=== PATIENT | male | born 1965 | race Two or more races ===

== ENCOUNTER 2020-10-28 17:00 | Inpatient (IN) | payer MEDICAID ==
[~2020-10-28] VITALS: Ht 193 cm; Wt 113.4 kg
[2020-10-28 18:54] VITALS: BP 149/92
[2020-10-28 20:00] VITALS: BP 132/69
[2020-10-28 20:39] VITALS: BP 149/91
[2020-10-28] MEDS ORDERED: HYDROCODONE/ACETAMINOPHEN 5/325MG TABLET PO PRN (21:00)
[2020-10-28] MEDS ORDERED: DEXTROSE 50% WATER 50ML SYRINGE IV PRN (21:00)
[2020-10-28] MEDS ORDERED: GLUCAGON,HUMAN RECOMBINANT 1MG/VIAL SUBCUT PRN (21:00)
[2020-10-28] MEDS ORDERED: NALOXONE HCL 0.4MG/ML VIAL IV PRN (21:30)
[2020-10-28] MEDS: BLOOD SUGAR DIAGNOSTIC STRIP TEST SCH (21:50)
[2020-10-28] MEDS: ATORVASTATIN CALCIUM 40MG TABLET PO SCH (22:07)
[2020-10-28] MEDS: INSULIN LISPRO 100 UNITS/ML SUBCUT SCH (22:11)
[2020-10-29] MEDS: BLOOD SUGAR DIAGNOSTIC STRIP TEST SCH ×4 (06:18→21:37)
[2020-10-29] MEDS: INSULIN LISPRO 100 UNITS/ML SUBCUT SCH ×4 (06:27→21:44)
[2020-10-29 06:31] LABS: BASOPHILS % 0.6 % (0.0-2.0); HEMOGLOBIN. 16.9 g/dL (14.0-18.0); LYMPHOCYTES % 17.4 % (20.0-50.0); MEAN CORPUSCULAR HEMOGLOBIN 29.1 pg (28.0-32.0); MEAN CORPUSCULAR VOLUME 86.2 fL (80.0-94.0); MEAN PLATELET VOLUME 8.5 fl (7.4-10.4); PLATELET 233 x1000/uL (130-400); RED CELL DISTRIBUTION WIDTH 13.9 % (11.6-14.6)
[2020-10-29 07:16] LABS: CHLORIDE 105 mEq/L (98-107)
[2020-10-29 08:00] VITALS: BP 124/75
[2020-10-29] MEDS: ASPIRIN 325MG EC TABLET PO SCH (09:40)
[2020-10-29] MEDS: LINAGLIPTIN 5MG TABLET PO SCH (09:40)
[2020-10-29] MEDS: CLOPIDOGREL 75MG TABLET PO SCH (09:40)
[2020-10-29] MEDS: AMLODIPINE 10MG TABLET PO SCH (09:41)
[2020-10-29] MEDS ORDERED: POLYETHYLENE GLYCOL 3350 (17GM) 1 DOSE PACK PO NR (11:15)
[2020-10-29 20:00] VITALS: BP 145/73
[2020-10-29] MEDS: ATORVASTATIN CALCIUM 40MG TABLET PO SCH (21:38)
[2020-10-30] MEDS: BLOOD SUGAR DIAGNOSTIC STRIP TEST SCH ×4 (06:08→21:44)
[2020-10-30] MEDS: INSULIN LISPRO 100 UNITS/ML SUBCUT SCH ×4 (06:15→21:50)
[2020-10-30] MEDS ORDERED: NA PHOS,M-B/NA PHOS,DI-BA ENEMA 118ML PR PRN (07:45)
[2020-10-30] MEDS ORDERED: BISACODYL 10MG SUPP PR PRN (07:45)
[2020-10-30 07:50] LABS: BASOPHILS % 0.6 % (0.0-2.0); EOSINOPHILS % 0.6 % (0.0-5.0); HEMATOCRIT. 48.7 % (42.0-52.0); HEMOGLOBIN. 16.3 g/dL (14.0-18.0); LYMPHOCYTES % 17.4 % (20.0-50.0); MEAN CORPUSCULAR HEMOGLOBIN 29.1 pg (28.0-32.0); MEAN CORPUSCULAR VOLUME 86.9 fL (80.0-94.0); MEAN PLATELET VOLUME 8.3 fl (7.4-10.4); MONOCYTES % 14.6 % (2.0-8.0); NEUTROPHILS % 66.8 % (40.0-76.0); PLATELET 273 x1000/uL (130-400); RED CELL DISTRIBUTION WIDTH 14.1 % (11.6-14.6)
[2020-10-30 07:51] LABS: CHLORIDE 105 mEq/L (98-107)
[2020-10-30 08:03] LABS: PROSTRATE SPECIFIC AG TOTAL 0.74 ng/mL (0.0-4.0)
[2020-10-30 08:07] LABS: FOLIC ACID (FOLATE) SERUM 16.4 ng/mL (>5.38)
[2020-10-30 08:08] LABS: LDL CHOLESTEROL 91 mg/dL (5-100)
[2020-10-30 08:09] LABS: HDL CHOLESTEROL 21 mg/dL (40-59)
[2020-10-30 08:10] LABS: TOTAL IRON BINDING CAPACITY 308 ug/dL (250-450)
[2020-10-30 08:16] VITALS: BP 143/69
[2020-10-30] MEDS: ARIPIPRAZOLE 5MG TABLET PO SCH (09:55)
[2020-10-30] MEDS: ASPIRIN 325MG EC TABLET PO SCH (09:55)
[2020-10-30] MEDS: LINAGLIPTIN 5MG TABLET PO SCH (09:56)
[2020-10-30] MEDS: CITALOPRAM HYDROBROMIDE 10MG TABLET PO SCH (09:56)
[2020-10-30] MEDS: AMLODIPINE 10MG TABLET PO SCH (09:56)
[2020-10-30] MEDS: CLOPIDOGREL 75MG TABLET PO SCH (09:56)
[2020-10-30] MEDS: BISACODYL 5MG TABLET PO PRN (11:11)
[2020-10-30] MEDS: LACTULOSE 20G/30ML UDC PO PRN ×2 (12:47→21:45)
[2020-10-30] MEDS: POLYETHYLENE GLYCOL 3350 (17GM) 1 DOSE PACK PO SCH (14:15)
[2020-10-30] MEDS: ASCORBIC ACID 500 MG TABLET PO SCH (18:13)
[2020-10-30] MEDS: METFORMIN HCL 500MG TABLET PO SCH (18:13)
[2020-10-30] MEDS: DOCUSATE SODIUM 100MG CAPSULE PO SCH (18:13)
[2020-10-30] MEDS: FERROUS SULFATE 325MG TABLET PO SCH (18:13)
[2020-10-30 20:00] VITALS: BP 143/65
[2020-10-30] MEDS: ATORVASTATIN CALCIUM 40MG TABLET PO SCH (21:45)
[2020-10-30] MEDS: TRAZODONE HCL 50MG TABLET PO SCH (21:45)
[2020-10-30] MEDS ORDERED: INSULIN GLARGINE UD 100 UNITS/ML SYR SUBCUT SCH (22:00)
[2020-10-31] MEDS: BLOOD SUGAR DIAGNOSTIC STRIP TEST SCH ×4 (06:22→20:36)
[2020-10-31] MEDS: BISACODYL 5MG TABLET PO PRN (06:23)
[2020-10-31] MEDS: INSULIN LISPRO 100 UNITS/ML SUBCUT SCH ×4 (06:27→21:16)
[2020-10-31] MEDS: MICONAZOLE NITRATE TOP SCH ×3 (06:42→21:11)
[2020-10-31 08:00] VITALS: BP 148/74
[2020-10-31] MEDS: FERROUS SULFATE 325MG TABLET PO SCH ×2 (08:29→12:28)
[2020-10-31] MEDS: METFORMIN HCL 500MG TABLET PO SCH ×2 (08:29→17:00)
[2020-10-31] MEDS: DOCUSATE SODIUM 100MG CAPSULE PO SCH ×2 (08:29→17:55)
[2020-10-31] MEDS: AMLODIPINE 10MG TABLET PO SCH (08:29)
[2020-10-31] MEDS: ASPIRIN 325MG EC TABLET PO SCH (08:29)
[2020-10-31] MEDS: ASCORBIC ACID 500 MG TABLET PO SCH (08:29)
[2020-10-31] MEDS: CITALOPRAM HYDROBROMIDE 10MG TABLET PO SCH (08:29)
[2020-10-31] MEDS: POLYETHYLENE GLYCOL 3350 (17GM) 1 DOSE PACK PO SCH (08:30)
[2020-10-31] MEDS: LINAGLIPTIN 5MG TABLET PO SCH (08:30)
[2020-10-31] MEDS: CLOPIDOGREL 75MG TABLET PO SCH (08:30)
[2020-10-31] MEDS: ARIPIPRAZOLE 5MG TABLET PO SCH (08:30)
[2020-10-31] MEDS ORDERED: LISINOPRIL 2.5MG TABLET PO SCH (09:00)
[2020-10-31] MEDS ORDERED: MICONAZOLE NITRATE 2% OINT 71GM TOP SCH (09:00)
[2020-10-31] MEDS: REPAGLINIDE 1MG TABLET PO SCH ×3 (12:29→17:55)
[2020-10-31] MEDS: ATORVASTATIN CALCIUM 40MG TABLET PO SCH (21:10)
[2020-10-31] MEDS: TRAZODONE HCL 50MG TABLET PO SCH (21:10)
[2020-10-31] MEDS: INSULIN GLARGINE UD 100 UNITS/ML SYR SUBCUT SCH (21:10)
[2020-10-31] MEDS: ACETAMINOPHEN 325MG TABLET PO PRN (21:11)
[2020-10-31 22:29] VITALS: BP 161/72
[2020-11-01] MEDS: BLOOD SUGAR DIAGNOSTIC STRIP TEST SCH ×4 (05:37→21:11)
[2020-11-01] MEDS: ACETAMINOPHEN 325MG TABLET PO PRN (06:03)
[2020-11-01] MEDS: MICONAZOLE NITRATE TOP SCH ×3 (06:03→21:11)
[2020-11-01 07:56] VITALS: BP 116/64
[2020-11-01] MEDS: INSULIN LISPRO 100 UNITS/ML SUBCUT SCH ×4 (09:00→21:13)
[2020-11-01] MEDS: POLYETHYLENE GLYCOL 3350 (17GM) 1 DOSE PACK PO SCH (09:57)
[2020-11-01] MEDS: LACTULOSE 20G/30ML UDC PO PRN (09:57)
[2020-11-01] MEDS: ARIPIPRAZOLE 5MG TABLET PO SCH (10:02)
[2020-11-01] MEDS: DOCUSATE SODIUM 100MG CAPSULE PO SCH ×2 (10:03→17:46)
[2020-11-01] MEDS: CITALOPRAM HYDROBROMIDE 10MG TABLET PO SCH (10:03)
[2020-11-01] MEDS: ASPIRIN 325MG EC TABLET PO SCH (10:03)
[2020-11-01] MEDS: METFORMIN HCL 500MG TABLET PO SCH (10:04)
[2020-11-01] MEDS: AMLODIPINE 10MG TABLET PO SCH (10:05)
[2020-11-01] MEDS: FERROUS SULFATE 325MG TABLET PO SCH (10:05)
[2020-11-01] MEDS: CLOPIDOGREL 75MG TABLET PO SCH (10:06)
[2020-11-01] MEDS: LINAGLIPTIN 5MG TABLET PO SCH (10:06)
[2020-11-01] MEDS: ASCORBIC ACID 500 MG TABLET PO SCH (10:06)
[2020-11-01] MEDS: REPAGLINIDE 1MG TABLET PO SCH ×3 (10:06→17:46)
[2020-11-01 10:32] LABS: HEMATOCRIT 49.1 % (42.0-52.0); HEMOGLOBIN 16.7 g/dL (14.0-18.0); MEAN CORPUSCULAR HEMOGLOBIN 29.5 pg (28.0-32.0); MEAN CORPUSCULAR VOLUME 86.7 fL (80.0-94.0); PLATELET 303 x1000/uL (130-400); RED BLOOD CELL COUNT 5.66 mill/uL (4.7-6.1)
[2020-11-01] MEDS ORDERED: SODIUM POLYSTYRENE SULFONATE 15 G/60 ML BOT PO NR (16:00)
[2020-11-01 20:00] VITALS: BP 112/59
[2020-11-01] MEDS: ATORVASTATIN CALCIUM 40MG TABLET PO SCH (21:11)
[2020-11-01] MEDS: TRAZODONE HCL 50MG TABLET PO SCH (21:11)
[2020-11-01] MEDS: INSULIN GLARGINE UD 100 UNITS/ML SYR SUBCUT SCH (21:15)
[2020-11-02] MEDS: MICONAZOLE NITRATE TOP SCH ×3 (06:04→21:34)
[2020-11-02] MEDS: BLOOD SUGAR DIAGNOSTIC STRIP TEST SCH ×4 (06:08→20:44)
[2020-11-02 06:29] LABS: CLARITY URINE CLEAR (CLEAR); COLOR URINE YELLOW (YELLOW); KETONES URINE TRACE (NEGATIVE); LEUKOCYTE ESTERASE URINE 2+ (NEGATIVE); NITRITE URINE NEGATIVE (NEGATIVE); OCCULT BLOOD URINE NEGATIVE (NEGATIVE); PROTEIN URINE NEGATIVE (NEGATIVE); SPECIFIC GRAVITY URINE 1.019 (1.005-1.030); UROBILINOGEN URINE 0.2 E.U./dL (0.2-1.0)
[2020-11-02 07:07] LABS: CHLORIDE 102 mEq/L (98-107)
[2020-11-02 07:16] LABS: PHOSPHORUS 2.9 mg/dL (2.5-4.9)
[2020-11-02 07:19] LABS: CREATINE KINASE 195 IU/L (39-308)
[2020-11-02 07:20] LABS: BASOPHILS % 0.6 % (0.0-2.0); EOSINOPHILS % 0.6 % (0.0-5.0); HEMATOCRIT. 47.6 % (42.0-52.0); LYMPHOCYTES % 12.6 % (20.0-50.0); MEAN CORPUSCULAR VOLUME 86.2 fL (80.0-94.0); MEAN PLATELET VOLUME 8.2 fl (7.4-10.4); NEUTROPHILS % 72.2 % (40.0-76.0); PLATELET 288 x1000/uL (130-400); RED BLOOD CELL COUNT 5.52 mill/uL (4.7-6.1); RED CELL DISTRIBUTION WIDTH 13.6 % (11.6-14.6)
[2020-11-02 08:00] VITALS: BP 136/70
[2020-11-02] MEDS: ASPIRIN 325MG EC TABLET PO SCH (08:31)
[2020-11-02] MEDS: FERROUS SULFATE 325MG TABLET PO SCH (08:32)
[2020-11-02] MEDS: ASCORBIC ACID 500 MG TABLET PO SCH (08:32)
[2020-11-02] MEDS: CLOPIDOGREL 75MG TABLET PO SCH (08:32)
[2020-11-02] MEDS: ARIPIPRAZOLE 5MG TABLET PO SCH (08:32)
[2020-11-02] MEDS: LINAGLIPTIN 5MG TABLET PO SCH (08:33)
[2020-11-02] MEDS: AMLODIPINE 10MG TABLET PO SCH (08:33)
[2020-11-02] MEDS: CITALOPRAM HYDROBROMIDE 10MG TABLET PO SCH (08:33)
[2020-11-02] MEDS: REPAGLINIDE 1MG TABLET PO SCH ×3 (08:34→17:29)
[2020-11-02] MEDS: POLYETHYLENE GLYCOL 3350 (17GM) 1 DOSE PACK PO SCH (08:38)
[2020-11-02] MEDS: DOCUSATE SODIUM 100MG CAPSULE PO SCH ×2 (08:38→17:29)
[2020-11-02] MEDS: INSULIN LISPRO 100 UNITS/ML SUBCUT SCH ×4 (08:41→21:54)
[2020-11-02] MEDS ORDERED: POTASSIUM CHLORIDE 20MEQ TABLET SR PO NR (08:45)
[2020-11-02] MEDS: PREDNISOLONE ACETATE 1% OPHTH DROPS 5ML BOTHEYE SCH (17:29)
[2020-11-02 20:00] VITALS: BP 134/75
[2020-11-02] MEDS: TRAZODONE HCL 50MG TABLET PO SCH (21:31)
[2020-11-02] MEDS: ATORVASTATIN CALCIUM 40MG TABLET PO SCH (21:31)
[2020-11-02] MEDS: INSULIN GLARGINE UD 100 UNITS/ML SYR SUBCUT SCH (21:53)
[2020-11-03] MEDS: PREDNISOLONE ACETATE 1% OPHTH DROPS 5ML BOTHEYE SCH ×4 (00:20→17:18)
[2020-11-03] MEDS: MICONAZOLE NITRATE TOP SCH ×3 (05:30→21:05)
[2020-11-03] MEDS: BLOOD SUGAR DIAGNOSTIC STRIP TEST SCH ×4 (05:31→21:03)
[2020-11-03 07:58] LABS: BASOPHILS % 0.8 % (0.0-2.0); EOSINOPHILS % 0.9 % (0.0-5.0); HEMATOCRIT. 44.8 % (42.0-52.0); HEMOGLOBIN. 15.2 g/dL (14.0-18.0); LYMPHOCYTES % 18.5 % (20.0-50.0); MEAN CORPUSCULAR HEMOGLOBIN 29.1 pg (28.0-32.0); MEAN CORPUSCULAR VOLUME 85.6 fL (80.0-94.0); MONOCYTES % 14.9 % (2.0-8.0); NEUTROPHILS % 64.9 % (40.0-76.0); PLATELET 320 x1000/uL (130-400); RED BLOOD CELL COUNT 5.23 mill/uL (4.7-6.1); RED CELL DISTRIBUTION WIDTH 14.1 % (11.6-14.6)
[2020-11-03 08:00] VITALS: BP 145/66
[2020-11-03] MEDS: INSULIN LISPRO 100 UNITS/ML SUBCUT SCH ×4 (08:19→21:18)
[2020-11-03] MEDS: CLOPIDOGREL 75MG TABLET PO SCH (08:50)
[2020-11-03] MEDS: ASCORBIC ACID 500 MG TABLET PO SCH (08:50)
[2020-11-03] MEDS: DOCUSATE SODIUM 100MG CAPSULE PO SCH ×2 (08:51→17:18)
[2020-11-03] MEDS: FERROUS SULFATE 325MG TABLET PO SCH (08:51)
[2020-11-03] MEDS: REPAGLINIDE 1MG TABLET PO SCH ×3 (08:51→17:18)
[2020-11-03] MEDS: ARIPIPRAZOLE 5MG TABLET PO SCH (08:51)
[2020-11-03] MEDS: AMLODIPINE 10MG TABLET PO SCH (08:51)
[2020-11-03] MEDS: LINAGLIPTIN 5MG TABLET PO SCH (08:51)
[2020-11-03] MEDS: CITALOPRAM HYDROBROMIDE 10MG TABLET PO SCH (08:52)
[2020-11-03] MEDS: ASPIRIN 325MG EC TABLET PO SCH (08:52)
[2020-11-03] MEDS: POLYETHYLENE GLYCOL 3350 (17GM) 1 DOSE PACK PO SCH (08:52)
[2020-11-03 09:05] LABS: CHLORIDE 102 mEq/L (98-107)
[2020-11-03 09:19] LABS: PHOSPHORUS 2.6 mg/dL (2.5-4.9)
[2020-11-03] MEDS ORDERED: POTASSIUM CHLORIDE 20MEQ TABLET SR PO SCH (10:00)
[2020-11-03] MEDS: TAMSULOSIN HCL 0.4MG SR CAPSULE PO SCH (10:27)
[2020-11-03 20:00] VITALS: BP 130/66
[2020-11-03] MEDS: TRAZODONE HCL 50MG TABLET PO SCH (21:03)
[2020-11-03] MEDS: ATORVASTATIN CALCIUM 40MG TABLET PO SCH (21:03)
[2020-11-03] MEDS ORDERED: INSULIN GLARGINE UD 100 UNITS/ML SYR SUBCUT SCH (22:00)
[2020-11-04] MEDS: PREDNISOLONE ACETATE 1% OPHTH DROPS 5ML BOTHEYE SCH ×5 (00:29→22:50)
[2020-11-04] MEDS: ACETAMINOPHEN 325MG TABLET PO PRN (00:45)
[2020-11-04] MEDS: BLOOD SUGAR DIAGNOSTIC STRIP TEST SCH ×4 (05:30→21:00)
[2020-11-04] MEDS: MICONAZOLE NITRATE TOP SCH ×3 (06:20→22:49)
[2020-11-04 07:49] VITALS: BP 141/80
[2020-11-04] MEDS: INSULIN LISPRO 100 UNITS/ML SUBCUT SCH ×4 (09:00→22:58)
[2020-11-04] MEDS: POLYETHYLENE GLYCOL 3350 (17GM) 1 DOSE PACK PO SCH (09:35)
[2020-11-04] MEDS: AMLODIPINE 10MG TABLET PO SCH (09:36)
[2020-11-04] MEDS: FERROUS SULFATE 325MG TABLET PO SCH (09:36)
[2020-11-04] MEDS: CITALOPRAM HYDROBROMIDE 10MG TABLET PO SCH (09:36)
[2020-11-04] MEDS: DOCUSATE SODIUM 100MG CAPSULE PO SCH ×2 (09:36→17:33)
[2020-11-04] MEDS: ASCORBIC ACID 500 MG TABLET PO SCH (09:37)
[2020-11-04] MEDS: ASPIRIN 325MG EC TABLET PO SCH (09:37)
[2020-11-04] MEDS: TAMSULOSIN HCL 0.4MG SR CAPSULE PO SCH (09:37)
[2020-11-04] MEDS: ARIPIPRAZOLE 5MG TABLET PO SCH (09:37)
[2020-11-04] MEDS: CLOPIDOGREL 75MG TABLET PO SCH (09:37)
[2020-11-04] MEDS: REPAGLINIDE 1MG TABLET PO SCH ×3 (09:38→20:25)
[2020-11-04] MEDS: LINAGLIPTIN 5MG TABLET PO SCH (09:38)
[2020-11-04 20:00] VITALS: BP 136/72
[2020-11-04] MEDS ORDERED: INSULIN GLARGINE UD 100 UNITS/ML SYR SUBCUT SCH (22:00)
[2020-11-04] MEDS: TRAZODONE HCL 50MG TABLET PO SCH (22:49)
[2020-11-04] MEDS: ATORVASTATIN CALCIUM 40MG TABLET PO SCH (22:49)
[2020-11-05] MEDS: PREDNISOLONE ACETATE 1% OPHTH DROPS 5ML BOTHEYE SCH ×4 (05:18→20:46)
[2020-11-05] MEDS: MICONAZOLE NITRATE TOP SCH ×3 (05:19→20:46)
[2020-11-05] MEDS: BLOOD SUGAR DIAGNOSTIC STRIP TEST SCH ×4 (05:22→21:00)
[2020-11-05] MEDS: INSULIN LISPRO 100 UNITS/ML SUBCUT SCH ×4 (06:43→20:48)
[2020-11-05 07:38] LABS: CHLORIDE 107 mEq/L (98-107)
[2020-11-05 08:12] VITALS: BP_SYST 125; BP_SYST 155; BP_DIAS 51; BP_DIAS 85
[2020-11-05] MEDS: LINAGLIPTIN 5MG TABLET PO SCH (08:38)
[2020-11-05] MEDS: DOCUSATE SODIUM 100MG CAPSULE PO SCH ×2 (08:38→17:13)
[2020-11-05] MEDS: REPAGLINIDE 1MG TABLET PO SCH ×3 (08:38→17:13)
[2020-11-05] MEDS: AMLODIPINE 10MG TABLET PO SCH (08:38)
[2020-11-05] MEDS: ARIPIPRAZOLE 5MG TABLET PO SCH (08:38)
[2020-11-05] MEDS: CITALOPRAM HYDROBROMIDE 10MG TABLET PO SCH (08:39)
[2020-11-05] MEDS: CLOPIDOGREL 75MG TABLET PO SCH (08:39)
[2020-11-05] MEDS: FERROUS SULFATE 325MG TABLET PO SCH (08:39)
[2020-11-05] MEDS: TAMSULOSIN HCL 0.4MG SR CAPSULE PO SCH (08:39)
[2020-11-05] MEDS: POLYETHYLENE GLYCOL 3350 (17GM) 1 DOSE PACK PO SCH (08:39)
[2020-11-05] MEDS: ASCORBIC ACID 500 MG TABLET PO SCH (08:39)
[2020-11-05] MEDS: ASPIRIN 325MG EC TABLET PO SCH (08:39)
[2020-11-05] MEDS: METFORMIN HCL 500MG TABLET PO SCH (17:13)
[2020-11-05 20:00] VITALS: BP 133/59
[2020-11-05] MEDS: TRAZODONE HCL 50MG TABLET PO SCH (20:45)
[2020-11-05] MEDS: ATORVASTATIN CALCIUM 40MG TABLET PO SCH (20:46)
[2020-11-05] MEDS: INSULIN GLARGINE UD 100 UNITS/ML SYR SUBCUT SCH (20:48)
[2020-11-06] MEDS: BLOOD SUGAR DIAGNOSTIC STRIP TEST SCH ×4 (06:19→21:48)
[2020-11-06] MEDS: PREDNISOLONE ACETATE 1% OPHTH DROPS 5ML BOTHEYE SCH ×3 (06:20→17:49)
[2020-11-06] MEDS: MICONAZOLE NITRATE TOP SCH ×3 (06:21→21:53)
[2020-11-06] MEDS: INSULIN LISPRO 100 UNITS/ML SUBCUT SCH ×4 (06:25→21:53)
[2020-11-06] MEDS: METFORMIN HCL 500MG TABLET PO SCH ×2 (08:26→17:49)
[2020-11-06] MEDS: ASPIRIN 325MG EC TABLET PO SCH (08:26)
[2020-11-06] MEDS: POLYETHYLENE GLYCOL 3350 (17GM) 1 DOSE PACK PO SCH (08:26)
[2020-11-06] MEDS: FERROUS SULFATE 325MG TABLET PO SCH (08:27)
[2020-11-06] MEDS: REPAGLINIDE 1MG TABLET PO SCH ×3 (08:27→17:49)
[2020-11-06] MEDS: ARIPIPRAZOLE 5MG TABLET PO SCH (08:27)
[2020-11-06] MEDS: DOCUSATE SODIUM 100MG CAPSULE PO SCH ×2 (08:27→17:49)
[2020-11-06] MEDS: ASCORBIC ACID 500 MG TABLET PO SCH (08:27)
[2020-11-06] MEDS: CLOPIDOGREL 75MG TABLET PO SCH (08:28)
[2020-11-06] MEDS: AMLODIPINE 10MG TABLET PO SCH (08:28)
[2020-11-06] MEDS: LINAGLIPTIN 5MG TABLET PO SCH (08:28)
[2020-11-06] MEDS: CITALOPRAM HYDROBROMIDE 10MG TABLET PO SCH (08:28)
[2020-11-06] MEDS: TAMSULOSIN HCL 0.4MG SR CAPSULE PO SCH (08:29)
[2020-11-06 08:30] VITALS: BP 136/70
[2020-11-06] MEDS: ACETAMINOPHEN 325MG TABLET PO PRN (15:15)
[2020-11-06] MEDS: BISACODYL 5MG TABLET PO PRN (15:15)
[2020-11-06 20:00] VITALS: BP 124/77
[2020-11-06] MEDS: ATORVASTATIN CALCIUM 40MG TABLET PO SCH (21:48)
[2020-11-06] MEDS: TRAZODONE HCL 50MG TABLET PO SCH (21:48)
[2020-11-06] MEDS: INSULIN GLARGINE UD 100 UNITS/ML SYR SUBCUT SCH (21:52)
[2020-11-07] MEDS: PREDNISOLONE ACETATE 1% OPHTH DROPS 5ML BOTHEYE SCH ×3 (05:12→17:36)
[2020-11-07] MEDS: MICONAZOLE NITRATE TOP SCH ×3 (05:12→21:12)
[2020-11-07] MEDS: BLOOD SUGAR DIAGNOSTIC STRIP TEST SCH ×4 (05:16→21:06)
[2020-11-07] MEDS: INSULIN LISPRO 100 UNITS/ML SUBCUT SCH ×4 (07:39→21:00)
[2020-11-07 07:54] VITALS: BP 153/90
[2020-11-07] MEDS: POLYETHYLENE GLYCOL 3350 (17GM) 1 DOSE PACK PO SCH (09:00)
[2020-11-07] MEDS ORDERED: AMLODIPINE 5MG TABLET PO SCH (09:00)
[2020-11-07] MEDS: FERROUS SULFATE 325MG TABLET PO SCH (09:00)
[2020-11-07] MEDS: TAMSULOSIN HCL 0.4MG SR CAPSULE PO SCH (09:02)
[2020-11-07] MEDS: DOCUSATE SODIUM 100MG CAPSULE PO SCH ×2 (09:02→17:00)
[2020-11-07] MEDS: ASPIRIN 325MG EC TABLET PO SCH (09:03)
[2020-11-07] MEDS: CLOPIDOGREL 75MG TABLET PO SCH (09:03)
[2020-11-07] MEDS: METFORMIN HCL 500MG TABLET PO SCH ×2 (09:03→17:36)
[2020-11-07] MEDS: CITALOPRAM HYDROBROMIDE 10MG TABLET PO SCH (09:03)
[2020-11-07] MEDS: ASCORBIC ACID 500 MG TABLET PO SCH (09:03)
[2020-11-07] MEDS: LINAGLIPTIN 5MG TABLET PO SCH (09:04)
[2020-11-07] MEDS: ARIPIPRAZOLE 5MG TABLET PO SCH (09:04)
[2020-11-07] MEDS: REPAGLINIDE 1MG TABLET PO SCH ×3 (09:04→17:36)
[2020-11-07 16:44] LABS: CHLORIDE 109 mEq/L (98-107)
[2020-11-07 16:49] LABS: HEMATOCRIT 45.8 % (42.0-52.0); HEMOGLOBIN 15.4 g/dL (14.0-18.0); MEAN CORPUSCULAR HEMOGLOBIN 29.3 pg (28.0-32.0); MEAN CORPUSCULAR VOLUME 86.8 fL (80.0-94.0); PLATELET 311 x1000/uL (130-400); RED BLOOD CELL COUNT 5.28 mill/uL (4.7-6.1); RED CELL DISTRIBUTION WIDTH 14.2 % (11.6-14.6)
[2020-11-07] MEDS: POLYVINYL ALCOHOL OPHTH DROPS 15ML BOTHEYE SCH (17:00)
[2020-11-07 20:00] VITALS: BP 147/63
[2020-11-07] MEDS: TRAZODONE HCL 50MG TABLET PO SCH (21:12)
[2020-11-07] MEDS: ATORVASTATIN CALCIUM 40MG TABLET PO SCH (21:12)
[2020-11-07] MEDS ORDERED: INSULIN GLARGINE UD 100 UNITS/ML SYR SUBCUT SCH (22:00)
[2020-11-08] MEDS: BLOOD SUGAR DIAGNOSTIC STRIP TEST SCH ×4 (05:43→20:13)
[2020-11-08] MEDS: MICONAZOLE NITRATE TOP SCH ×3 (06:02→21:26)
[2020-11-08] MEDS: INSULIN LISPRO 100 UNITS/ML SUBCUT SCH ×4 (06:11→20:13)
[2020-11-08 08:00] VITALS: BP 121/79
[2020-11-08] MEDS: POLYETHYLENE GLYCOL 3350 (17GM) 1 DOSE PACK PO SCH ×2 (10:30→10:32)
[2020-11-08] MEDS: ARIPIPRAZOLE 5MG TABLET PO SCH (10:32)
[2020-11-08] MEDS: CITALOPRAM HYDROBROMIDE 10MG TABLET PO SCH (10:32)
[2020-11-08] MEDS: LINAGLIPTIN 5MG TABLET PO SCH (10:32)
[2020-11-08] MEDS: POLYVINYL ALCOHOL OPHTH DROPS 15ML BOTHEYE SCH ×3 (10:32→17:13)
[2020-11-08] MEDS: FERROUS SULFATE 325MG TABLET PO SCH (10:32)
[2020-11-08] MEDS: CLOPIDOGREL 75MG TABLET PO SCH (10:32)
[2020-11-08] MEDS: DOCUSATE SODIUM 100MG CAPSULE PO SCH ×2 (10:33→17:13)
[2020-11-08] MEDS: METFORMIN HCL 500MG TABLET PO SCH ×2 (10:33→17:13)
[2020-11-08] MEDS: ASCORBIC ACID 500 MG TABLET PO SCH (10:33)
[2020-11-08] MEDS: ASPIRIN 325MG EC TABLET PO SCH (10:33)
[2020-11-08] MEDS: REPAGLINIDE 1MG TABLET PO SCH ×3 (10:33→17:13)
[2020-11-08] MEDS: TAMSULOSIN HCL 0.4MG SR CAPSULE PO SCH (10:34)
[2020-11-08] MEDS: AMLODIPINE 10MG TABLET PO SCH (10:34)
[2020-11-08 10:41] LABS: BASOPHILS % 0.7 % (0.0-2.0); EOSINOPHILS % 1.5 % (0.0-5.0); HEMATOCRIT. 43.3 % (42.0-52.0); HEMOGLOBIN. 14.9 g/dL (14.0-18.0); LYMPHOCYTES % 22.9 % (20.0-50.0); MEAN CORPUSCULAR HEMOGLOBIN 29.6 pg (28.0-32.0); MEAN CORPUSCULAR VOLUME 86.3 fL (80.0-94.0); MEAN PLATELET VOLUME 8.3 fl (7.4-10.4); MONOCYTES % 11.4 % (2.0-8.0); NEUTROPHILS % 63.5 % (40.0-76.0); PLATELET 295 x1000/uL (130-400); RED BLOOD CELL COUNT 5.02 mill/uL (4.7-6.1); RED CELL DISTRIBUTION WIDTH 13.8 % (11.6-14.6)
[2020-11-08 10:45] LABS: CHLORIDE 108 mEq/L (98-107)
[2020-11-08 17:06] LABS: 25-HYDROXY VITAMIN D3 17 ng/mL (.)
[2020-11-08 20:00] VITALS: BP 154/78
[2020-11-08] MEDS: TRAZODONE HCL 50MG TABLET PO SCH (20:07)
[2020-11-08] MEDS: ATORVASTATIN CALCIUM 40MG TABLET PO SCH (20:07)
[2020-11-08] MEDS ORDERED: [UNRECOGNIZED DRUG - OTHER] SUBCUT NR (22:45)
[2020-11-09] MEDS: BLOOD SUGAR DIAGNOSTIC STRIP TEST SCH ×3 (05:40→17:57)
[2020-11-09] MEDS: MICONAZOLE NITRATE TOP SCH ×3 (05:40→21:22)
[2020-11-09 08:00] VITALS: BP_SYST 124; BP_SYST 137; BP_DIAS 69; BP_DIAS 83
[2020-11-09] MEDS: POLYETHYLENE GLYCOL 3350 (17GM) 1 DOSE PACK PO SCH (09:00)
[2020-11-09] MEDS: DOCUSATE SODIUM 100MG CAPSULE PO SCH ×2 (09:00→18:00)
[2020-11-09] MEDS: INSULIN LISPRO 100 UNITS/ML SUBCUT SCH ×2 (09:00→11:39)
[2020-11-09] MEDS: CLOPIDOGREL 75MG TABLET PO SCH (09:30)
[2020-11-09] MEDS: FERROUS SULFATE 325MG TABLET PO SCH (09:30)
[2020-11-09] MEDS: LINAGLIPTIN 5MG TABLET PO SCH (09:30)
[2020-11-09] MEDS: TAMSULOSIN HCL 0.4MG SR CAPSULE PO SCH (09:30)
[2020-11-09] MEDS: ASPIRIN 325MG EC TABLET PO SCH (09:30)
[2020-11-09] MEDS: ASCORBIC ACID 500 MG TABLET PO SCH (09:30)
[2020-11-09] MEDS: CITALOPRAM HYDROBROMIDE 10MG TABLET PO SCH (09:30)
[2020-11-09] MEDS: POLYVINYL ALCOHOL OPHTH DROPS 15ML BOTHEYE SCH ×3 (09:31→17:58)
[2020-11-09] MEDS: REPAGLINIDE 1MG TABLET PO SCH ×3 (09:31→17:58)
[2020-11-09] MEDS: AMLODIPINE 10MG TABLET PO SCH (09:31)
[2020-11-09] MEDS: METFORMIN HCL 500MG TABLET PO SCH ×2 (09:31→17:58)
[2020-11-09] MEDS: ARIPIPRAZOLE 5MG TABLET PO SCH (09:31)
[2020-11-09] MEDS: ERGOCALCIFEROL 50000UNITS CAPSULE PO SCH (11:34)
[2020-11-09] MEDS ORDERED: DEXTROSE 50% WATER 50ML SYRINGE IV PRN (15:30)
[2020-11-09] MEDS ORDERED: INSULIN LISPRO 100 UNITS/ML SUBCUT SCH (17:00)
[2020-11-09] MEDS: INSULIN LISPRO (LOW DOSE) 100 UNITS/ML SUBCUT SCH (17:00)
[2020-11-09 20:00] VITALS: BP 129/62
[2020-11-09] MEDS: TRAZODONE HCL 50MG TABLET PO SCH (20:45)
[2020-11-09] MEDS: ATORVASTATIN CALCIUM 40MG TABLET PO SCH (20:45)
[2020-11-09] MEDS: INSULIN GLARGINE UD 100 UNITS/ML SYR SUBCUT SCH (21:44)
[2020-11-10] MEDS: ACETAMINOPHEN 325MG TABLET PO PRN ×2 (00:28→06:09)
[2020-11-10] MEDS: MICONAZOLE NITRATE TOP SCH ×3 (06:00→21:29)
[2020-11-10] MEDS: INSULIN LISPRO (LOW DOSE) 100 UNITS/ML SUBCUT SCH ×3 (06:17→17:00)
[2020-11-10] MEDS: BLOOD SUGAR DIAGNOSTIC STRIP TEST SCH ×3 (06:17→17:00)
[2020-11-10 08:00] VITALS: BP 107/61
[2020-11-10] MEDS: POLYETHYLENE GLYCOL 3350 (17GM) 1 DOSE PACK PO SCH (09:00)
[2020-11-10] MEDS: AMLODIPINE 10MG TABLET PO SCH (09:00)
[2020-11-10] MEDS: POLYVINYL ALCOHOL OPHTH DROPS 15ML BOTHEYE SCH ×3 (09:01→18:02)
[2020-11-10] MEDS: REPAGLINIDE 1MG TABLET PO SCH ×3 (09:01→18:01)
[2020-11-10] MEDS: ASPIRIN 325MG EC TABLET PO SCH (09:02)
[2020-11-10] MEDS: LINAGLIPTIN 5MG TABLET PO SCH (09:02)
[2020-11-10] MEDS: ARIPIPRAZOLE 5MG TABLET PO SCH (09:02)
[2020-11-10] MEDS: CLOPIDOGREL 75MG TABLET PO SCH (09:03)
[2020-11-10] MEDS: DOCUSATE SODIUM 100MG CAPSULE PO SCH ×2 (09:03→18:01)
[2020-11-10] MEDS: FERROUS SULFATE 325MG TABLET PO SCH (09:03)
[2020-11-10] MEDS: TAMSULOSIN HCL 0.4MG SR CAPSULE PO SCH (09:04)
[2020-11-10] MEDS: ASCORBIC ACID 500 MG TABLET PO SCH (09:04)
[2020-11-10] MEDS: METFORMIN HCL 500MG TABLET PO SCH ×2 (09:04→18:02)
[2020-11-10] MEDS: CITALOPRAM HYDROBROMIDE 10MG TABLET PO SCH (09:05)
[2020-11-10 20:00] VITALS: BP 134/80
[2020-11-10] MEDS: ATORVASTATIN CALCIUM 40MG TABLET PO SCH (20:22)
[2020-11-10] MEDS: TRAZODONE HCL 50MG TABLET PO SCH (20:22)
[2020-11-10] MEDS: INSULIN GLARGINE UD 100 UNITS/ML SYR SUBCUT SCH (21:28)
[2020-11-11] MEDS: MICONAZOLE NITRATE TOP SCH ×3 (06:22→21:26)
[2020-11-11] MEDS: BLOOD SUGAR DIAGNOSTIC STRIP TEST SCH ×3 (06:24→16:56)
[2020-11-11] MEDS: INSULIN LISPRO (LOW DOSE) 100 UNITS/ML SUBCUT SCH ×3 (06:25→17:00)
[2020-11-11 07:52] VITALS: BP 130/75
[2020-11-11] MEDS: POLYETHYLENE GLYCOL 3350 (17GM) 1 DOSE PACK PO SCH (09:00)
[2020-11-11] MEDS ORDERED: REPAGLINIDE 0.5MG TABLET PO SCH (09:00)
[2020-11-11] MEDS: POLYVINYL ALCOHOL OPHTH DROPS 15ML BOTHEYE SCH ×3 (09:31→16:55)
[2020-11-11] MEDS: CITALOPRAM HYDROBROMIDE 10MG TABLET PO SCH (09:32)
[2020-11-11] MEDS: FERROUS SULFATE 325MG TABLET PO SCH (09:32)
[2020-11-11] MEDS: TAMSULOSIN HCL 0.4MG SR CAPSULE PO SCH (09:32)
[2020-11-11] MEDS: CLOPIDOGREL 75MG TABLET PO SCH (09:32)
[2020-11-11] MEDS: ASPIRIN 325MG EC TABLET PO SCH (09:33)
[2020-11-11] MEDS: METFORMIN HCL 500MG TABLET PO SCH ×2 (09:33→16:56)
[2020-11-11] MEDS: REPAGLINIDE 1MG TABLET PO SCH ×3 (09:33→16:56)
[2020-11-11] MEDS: AMLODIPINE 10MG TABLET PO SCH (09:34)
[2020-11-11] MEDS: ASCORBIC ACID 500 MG TABLET PO SCH (09:34)
[2020-11-11] MEDS: LINAGLIPTIN 5MG TABLET PO SCH (09:34)
[2020-11-11] MEDS: DOCUSATE SODIUM 100MG CAPSULE PO SCH ×2 (09:34→16:55)
[2020-11-11] MEDS: ACETAMINOPHEN 325MG TABLET PO PRN (09:39)
[2020-11-11] MEDS: LIDOCAINE 5% PATCH TOP SCH (17:03)
[2020-11-11 20:00] VITALS: BP 138/66
[2020-11-11] MEDS: TRAZODONE HCL 50MG TABLET PO SCH (20:49)
[2020-11-11] MEDS: ATORVASTATIN CALCIUM 40MG TABLET PO SCH (20:49)
[2020-11-11] MEDS: INSULIN GLARGINE UD 100 UNITS/ML SYR SUBCUT SCH (21:27)
[2020-11-12] MEDS: BLOOD SUGAR DIAGNOSTIC STRIP TEST SCH ×3 (06:37→16:27)
[2020-11-12] MEDS: MICONAZOLE NITRATE TOP SCH ×3 (06:45→21:27)
[2020-11-12] MEDS: INSULIN LISPRO (LOW DOSE) 100 UNITS/ML SUBCUT SCH ×3 (06:46→16:47)
[2020-11-12] MEDS: POLYVINYL ALCOHOL OPHTH DROPS 15ML BOTHEYE SCH ×3 (08:09→16:45)
[2020-11-12] MEDS: CLOPIDOGREL 75MG TABLET PO SCH (08:10)
[2020-11-12] MEDS: AMLODIPINE 10MG TABLET PO SCH (08:10)
[2020-11-12] MEDS: METFORMIN HCL 500MG TABLET PO SCH ×2 (08:10→16:44)
[2020-11-12] MEDS: FERROUS SULFATE 325MG TABLET PO SCH (08:10)
[2020-11-12] MEDS: TAMSULOSIN HCL 0.4MG SR CAPSULE PO SCH (08:10)
[2020-11-12] MEDS: LINAGLIPTIN 5MG TABLET PO SCH (08:10)
[2020-11-12] MEDS: CITALOPRAM HYDROBROMIDE 10MG TABLET PO SCH (08:10)
[2020-11-12] MEDS: ASPIRIN 325MG EC TABLET PO SCH (08:10)
[2020-11-12] MEDS: ASCORBIC ACID 500 MG TABLET PO SCH (08:10)
[2020-11-12] MEDS: POLYETHYLENE GLYCOL 3350 (17GM) 1 DOSE PACK PO SCH (08:11)
[2020-11-12] MEDS: DOCUSATE SODIUM 100MG CAPSULE PO SCH ×2 (08:11→16:44)
[2020-11-12 08:30] VITALS: BP 115/61
[2020-11-12] MEDS: REPAGLINIDE 0.5MG TABLET PO SCH ×3 (09:00→16:44)
[2020-11-12] MEDS: LIDOCAINE 5% PATCH TOP SCH (17:08)
[2020-11-12 20:00] VITALS: BP 138/67
[2020-11-12] MEDS: ATORVASTATIN CALCIUM 40MG TABLET PO SCH (21:27)
[2020-11-12] MEDS: TRAZODONE HCL 50MG TABLET PO SCH (21:27)
[2020-11-12] MEDS: INSULIN GLARGINE UD 100 UNITS/ML SYR SUBCUT SCH (21:35)
[2020-11-13] MEDS: BLOOD SUGAR DIAGNOSTIC STRIP TEST SCH ×3 (06:09→17:00)
[2020-11-13] MEDS: INSULIN LISPRO (LOW DOSE) 100 UNITS/ML SUBCUT SCH ×3 (06:10→17:00)
[2020-11-13] MEDS: MICONAZOLE NITRATE TOP SCH ×3 (06:14→21:25)
[2020-11-13 07:08] LABS: EOSINOPHILS % 1.4 % (0.0-5.0); HEMATOCRIT. 45.6 % (42.0-52.0); HEMOGLOBIN. 15.1 g/dL (14.0-18.0); LYMPHOCYTES % 20.8 % (20.0-50.0); MEAN CORPUSCULAR VOLUME 87.6 fL (80.0-94.0); MEAN PLATELET VOLUME 8.4 fl (7.4-10.4); MONOCYTES % 10.8 % (2.0-8.0); PLATELET 268 x1000/uL (130-400); RED CELL DISTRIBUTION WIDTH 13.9 % (11.6-14.6)
[2020-11-13 07:17] LABS: CHLORIDE 110 mEq/L (98-107)
[2020-11-13 07:41] VITALS: BP_DIAS 125
[2020-11-13] MEDS: DOCUSATE SODIUM 100MG CAPSULE PO SCH ×2 (09:00→17:00)
[2020-11-13] MEDS: POLYETHYLENE GLYCOL 3350 (17GM) 1 DOSE PACK PO SCH (09:00)
[2020-11-13] MEDS: METFORMIN HCL 500MG TABLET PO SCH ×2 (09:08→17:05)
[2020-11-13] MEDS: POLYVINYL ALCOHOL OPHTH DROPS 15ML BOTHEYE SCH ×3 (09:08→17:05)
[2020-11-13] MEDS: FERROUS SULFATE 325MG TABLET PO SCH (09:08)
[2020-11-13] MEDS: CLOPIDOGREL 75MG TABLET PO SCH (09:08)
[2020-11-13] MEDS: ASCORBIC ACID 500 MG TABLET PO SCH (09:08)
[2020-11-13] MEDS: REPAGLINIDE 0.5MG TABLET PO SCH ×3 (09:08→17:05)
[2020-11-13] MEDS: CITALOPRAM HYDROBROMIDE 10MG TABLET PO SCH (09:08)
[2020-11-13] MEDS: LINAGLIPTIN 5MG TABLET PO SCH (09:08)
[2020-11-13] MEDS: ASPIRIN 325MG EC TABLET PO SCH (09:09)
[2020-11-13] MEDS: TAMSULOSIN HCL 0.4MG SR CAPSULE PO SCH (10:19)
[2020-11-13] MEDS: AMLODIPINE 5MG TABLET PO SCH ×2 (10:19→21:24)
[2020-11-13] MEDS: LIDOCAINE 5% PATCH TOP SCH (18:00)
[2020-11-13 20:00] VITALS: BP 126/63
[2020-11-13] MEDS: INSULIN GLARGINE UD 100 UNITS/ML SYR SUBCUT SCH (21:21)
[2020-11-13] MEDS: ATORVASTATIN CALCIUM 40MG TABLET PO SCH (21:24)
[2020-11-13] MEDS: TRAZODONE HCL 50MG TABLET PO SCH (21:24)
[2020-11-14] MEDS: BLOOD SUGAR DIAGNOSTIC STRIP TEST SCH ×3 (06:08→17:00)
[2020-11-14] MEDS: INSULIN LISPRO (LOW DOSE) 100 UNITS/ML SUBCUT SCH ×3 (06:08→17:00)
[2020-11-14] MEDS: MICONAZOLE NITRATE TOP SCH ×3 (06:09→21:03)
[2020-11-14 07:33] VITALS: BP 144/89
[2020-11-14] MEDS: POLYETHYLENE GLYCOL 3350 (17GM) 1 DOSE PACK PO SCH (09:00)
[2020-11-14] MEDS: ASPIRIN 325MG EC TABLET PO SCH (11:23)
[2020-11-14] MEDS: METFORMIN HCL 500MG TABLET PO SCH ×2 (11:23→17:32)
[2020-11-14] MEDS: AMLODIPINE 5MG TABLET PO SCH ×2 (11:23→20:55)
[2020-11-14] MEDS: CITALOPRAM HYDROBROMIDE 10MG TABLET PO SCH (11:24)
[2020-11-14] MEDS: POLYVINYL ALCOHOL OPHTH DROPS 15ML BOTHEYE SCH ×3 (11:24→17:00)
[2020-11-14] MEDS: ASCORBIC ACID 500 MG TABLET PO SCH (11:24)
[2020-11-14] MEDS: DOCUSATE SODIUM 100MG CAPSULE PO SCH ×2 (11:24→17:00)
[2020-11-14] MEDS: CLOPIDOGREL 75MG TABLET PO SCH (11:24)
[2020-11-14] MEDS: LINAGLIPTIN 5MG TABLET PO SCH (11:24)
[2020-11-14] MEDS: TAMSULOSIN HCL 0.4MG SR CAPSULE PO SCH (11:24)
[2020-11-14] MEDS: FERROUS SULFATE 325MG TABLET PO SCH (11:24)
[2020-11-14] MEDS: LIDOCAINE 5% PATCH TOP SCH (17:34)
[2020-11-14 20:00] VITALS: BP 140/61
[2020-11-14] MEDS: TRAZODONE HCL 50MG TABLET PO SCH (20:54)
[2020-11-14] MEDS: ATORVASTATIN CALCIUM 40MG TABLET PO SCH (20:54)
[2020-11-14] MEDS: INSULIN GLARGINE UD 100 UNITS/ML SYR SUBCUT SCH (21:03)
[2020-11-15] MEDS: MICONAZOLE NITRATE TOP SCH ×3 (06:00→21:29)
[2020-11-15] MEDS: BLOOD SUGAR DIAGNOSTIC STRIP TEST SCH ×3 (06:27→17:28)
[2020-11-15] MEDS: INSULIN LISPRO (LOW DOSE) 100 UNITS/ML SUBCUT SCH ×3 (06:27→17:00)
[2020-11-15 07:51] VITALS: BP 133/84
[2020-11-15] MEDS: METFORMIN HCL 500MG TABLET PO SCH ×2 (08:53→17:56)
[2020-11-15] MEDS: POLYVINYL ALCOHOL OPHTH DROPS 15ML BOTHEYE SCH ×3 (08:53→17:56)
[2020-11-15] MEDS: ASPIRIN 325MG EC TABLET PO SCH (08:53)
[2020-11-15] MEDS: CITALOPRAM HYDROBROMIDE 10MG TABLET PO SCH (08:53)
[2020-11-15] MEDS: DOCUSATE SODIUM 100MG CAPSULE PO SCH ×2 (08:53→17:56)
[2020-11-15] MEDS: ASCORBIC ACID 500 MG TABLET PO SCH (08:53)
[2020-11-15] MEDS: LINAGLIPTIN 5MG TABLET PO SCH (08:54)
[2020-11-15] MEDS: AMLODIPINE 5MG TABLET PO SCH ×2 (08:54→21:20)
[2020-11-15] MEDS: TAMSULOSIN HCL 0.4MG SR CAPSULE PO SCH (08:54)
[2020-11-15] MEDS: CLOPIDOGREL 75MG TABLET PO SCH (08:54)
[2020-11-15] MEDS: FERROUS SULFATE 325MG TABLET PO SCH (08:55)
[2020-11-15] MEDS: POLYETHYLENE GLYCOL 3350 (17GM) 1 DOSE PACK PO SCH (08:55)
[2020-11-15] MEDS: LIDOCAINE 5% PATCH TOP SCH (19:32)
[2020-11-15 20:00] VITALS: BP 148/66
[2020-11-15] MEDS: ATORVASTATIN CALCIUM 40MG TABLET PO SCH (21:20)
[2020-11-15] MEDS: TRAZODONE HCL 50MG TABLET PO SCH (21:20)
[2020-11-15] MEDS: INSULIN GLARGINE UD 100 UNITS/ML SYR SUBCUT SCH (21:29)
[2020-11-16] MEDS: MICONAZOLE NITRATE TOP SCH ×3 (06:25→21:36)
[2020-11-16] MEDS: INSULIN LISPRO (LOW DOSE) 100 UNITS/ML SUBCUT SCH ×3 (06:32→17:00)
[2020-11-16] MEDS: BLOOD SUGAR DIAGNOSTIC STRIP TEST SCH ×3 (06:33→17:11)
[2020-11-16 08:00] VITALS: BP 119/65
[2020-11-16] MEDS: POLYETHYLENE GLYCOL 3350 (17GM) 1 DOSE PACK PO SCH (09:00)
[2020-11-16] MEDS: CLOPIDOGREL 75MG TABLET PO SCH (09:54)
[2020-11-16] MEDS: TAMSULOSIN HCL 0.4MG SR CAPSULE PO SCH (09:55)
[2020-11-16] MEDS: DOCUSATE SODIUM 100MG CAPSULE PO SCH ×2 (09:55→17:13)
[2020-11-16] MEDS: ERGOCALCIFEROL 50000UNITS CAPSULE PO SCH (09:55)
[2020-11-16] MEDS: CITALOPRAM HYDROBROMIDE 10MG TABLET PO SCH (09:55)
[2020-11-16] MEDS: LINAGLIPTIN 5MG TABLET PO SCH (09:55)
[2020-11-16] MEDS: ASPIRIN 325MG EC TABLET PO SCH (09:55)
[2020-11-16] MEDS: METFORMIN HCL 500MG TABLET PO SCH ×2 (09:55→17:13)
[2020-11-16] MEDS: ASCORBIC ACID 500 MG TABLET PO SCH (09:56)
[2020-11-16] MEDS: FERROUS SULFATE 325MG TABLET PO SCH (09:56)
[2020-11-16] MEDS: POLYVINYL ALCOHOL OPHTH DROPS 15ML BOTHEYE SCH ×3 (09:56→17:13)
[2020-11-16] MEDS: AMLODIPINE 10MG TABLET PO SCH (09:56)
[2020-11-16 13:08] LABS: EOSINOPHILS % 0.9 % (0.0-5.0); HEMATOCRIT. 46.5 % (42.0-52.0); HEMOGLOBIN. 15.4 g/dL (14.0-18.0); LYMPHOCYTES % 17.9 % (20.0-50.0); MEAN CORPUSCULAR VOLUME 87.6 fL (80.0-94.0); MEAN PLATELET VOLUME 8.4 fl (7.4-10.4); MONOCYTES % 9.5 % (2.0-8.0); NEUTROPHILS % 70.7 % (40.0-76.0); PLATELET 286 x1000/uL (130-400); RED BLOOD CELL COUNT 5.31 mill/uL (4.7-6.1); RED CELL DISTRIBUTION WIDTH 14.1 % (11.6-14.6)
[2020-11-16] MEDS: LIDOCAINE 5% PATCH TOP SCH (17:13)
[2020-11-16 20:00] VITALS: BP 121/59
[2020-11-16] MEDS: ATORVASTATIN CALCIUM 40MG TABLET PO SCH (20:27)
[2020-11-16] MEDS: TRAZODONE HCL 50MG TABLET PO SCH (20:27)
[2020-11-16] MEDS: INSULIN GLARGINE UD 100 UNITS/ML SYR SUBCUT SCH (21:15)
[2020-11-17] MEDS: MICONAZOLE NITRATE TOP SCH ×3 (06:00→21:33)
[2020-11-17] MEDS: BLOOD SUGAR DIAGNOSTIC STRIP TEST SCH ×3 (06:29→17:00)
[2020-11-17] MEDS: INSULIN LISPRO (LOW DOSE) 100 UNITS/ML SUBCUT SCH ×3 (06:33→17:00)
[2020-11-17 08:20] VITALS: BP 118/58
[2020-11-17] MEDS: ASPIRIN 325MG EC TABLET PO SCH (08:42)
[2020-11-17] MEDS: POLYVINYL ALCOHOL OPHTH DROPS 15ML BOTHEYE SCH ×3 (08:42→17:38)
[2020-11-17] MEDS: ASCORBIC ACID 500 MG TABLET PO SCH (08:42)
[2020-11-17] MEDS: FERROUS SULFATE 325MG TABLET PO SCH (08:42)
[2020-11-17] MEDS: POLYETHYLENE GLYCOL 3350 (17GM) 1 DOSE PACK PO SCH (08:42)
[2020-11-17] MEDS: DOCUSATE SODIUM 100MG CAPSULE PO SCH ×2 (08:42→17:39)
[2020-11-17] MEDS: METFORMIN HCL 500MG TABLET PO SCH ×2 (08:43→17:39)
[2020-11-17] MEDS: LINAGLIPTIN 5MG TABLET PO SCH (08:43)
[2020-11-17] MEDS: TAMSULOSIN HCL 0.4MG SR CAPSULE PO SCH (08:43)
[2020-11-17] MEDS: CITALOPRAM HYDROBROMIDE 10MG TABLET PO SCH (08:43)
[2020-11-17] MEDS: CLOPIDOGREL 75MG TABLET PO SCH (08:43)
[2020-11-17] MEDS: AMLODIPINE 10MG TABLET PO SCH (08:43)
[2020-11-17] MEDS: LIDOCAINE 5% PATCH TOP SCH (17:42)
[2020-11-17 20:00] VITALS: BP 135/74
[2020-11-17] MEDS: ATORVASTATIN CALCIUM 40MG TABLET PO SCH (21:33)
[2020-11-17] MEDS: TRAZODONE HCL 50MG TABLET PO SCH (21:33)
[2020-11-17] MEDS: INSULIN GLARGINE UD 100 UNITS/ML SYR SUBCUT SCH (21:39)
[2020-11-18] MEDS: MICONAZOLE NITRATE TOP SCH ×3 (05:43→20:33)
[2020-11-18 06:15] LABS: BASOPHILS % 0.9 % (0.0-2.0); EOSINOPHILS % 1.7 % (0.0-5.0); HEMATOCRIT. 44.3 % (42.0-52.0); HEMOGLOBIN. 14.8 g/dL (14.0-18.0); LYMPHOCYTES % 25.3 % (20.0-50.0); MEAN CORPUSCULAR HEMOGLOBIN 28.9 pg (28.0-32.0); MEAN CORPUSCULAR VOLUME 86.4 fL (80.0-94.0); MEAN PLATELET VOLUME 8.6 fl (7.4-10.4); MONOCYTES % 10.5 % (2.0-8.0); NEUTROPHILS % 61.6 % (40.0-76.0); PLATELET 248 x1000/uL (130-400); RED BLOOD CELL COUNT 5.13 mill/uL (4.7-6.1); RED CELL DISTRIBUTION WIDTH 14.1 % (11.6-14.6)
[2020-11-18] MEDS: BLOOD SUGAR DIAGNOSTIC STRIP TEST SCH ×3 (06:45→16:58)
[2020-11-18] MEDS: INSULIN LISPRO (LOW DOSE) 100 UNITS/ML SUBCUT SCH ×3 (06:46→16:58)
[2020-11-18 07:11] LABS: CHLORIDE 111 mEq/L (98-107)
[2020-11-18 07:50] VITALS: BP 130/62
[2020-11-18] MEDS: POLYETHYLENE GLYCOL 3350 (17GM) 1 DOSE PACK PO SCH (09:00)
[2020-11-18] MEDS: FERROUS SULFATE 325MG TABLET PO SCH (09:16)
[2020-11-18] MEDS: ASPIRIN 325MG EC TABLET PO SCH (09:16)
[2020-11-18] MEDS: TAMSULOSIN HCL 0.4MG SR CAPSULE PO SCH (09:16)
[2020-11-18] MEDS: DOCUSATE SODIUM 100MG CAPSULE PO SCH ×2 (09:16→16:54)
[2020-11-18] MEDS: POLYVINYL ALCOHOL OPHTH DROPS 15ML BOTHEYE SCH ×3 (09:16→16:55)
[2020-11-18] MEDS: ASCORBIC ACID 500 MG TABLET PO SCH (09:16)
[2020-11-18] MEDS: METFORMIN HCL 500MG TABLET PO SCH ×2 (09:16→16:54)
[2020-11-18] MEDS: CITALOPRAM HYDROBROMIDE 10MG TABLET PO SCH (09:17)
[2020-11-18] MEDS: CLOPIDOGREL 75MG TABLET PO SCH (09:17)
[2020-11-18] MEDS: AMLODIPINE 10MG TABLET PO SCH (09:17)
[2020-11-18] MEDS: LINAGLIPTIN 5MG TABLET PO SCH (09:17)
[2020-11-18] MEDS: LIDOCAINE 5% PATCH TOP SCH (17:01)
[2020-11-18 20:00] VITALS: BP 130/62
[2020-11-18] MEDS: TRAZODONE HCL 50MG TABLET PO SCH (20:28)
[2020-11-18] MEDS: ATORVASTATIN CALCIUM 40MG TABLET PO SCH (20:28)
[2020-11-18] MEDS: INSULIN GLARGINE UD 100 UNITS/ML SYR SUBCUT SCH (21:40)
[2020-11-19] MEDS: MICONAZOLE NITRATE TOP SCH ×3 (05:39→21:41)
[2020-11-19] MEDS: BLOOD SUGAR DIAGNOSTIC STRIP TEST SCH ×3 (05:43→17:13)
[2020-11-19] MEDS: INSULIN LISPRO (LOW DOSE) 100 UNITS/ML SUBCUT SCH ×3 (06:50→17:00)
[2020-11-19 08:22] VITALS: BP 118/62
[2020-11-19] MEDS: FERROUS SULFATE 325MG TABLET PO SCH (08:43)
[2020-11-19] MEDS: LINAGLIPTIN 5MG TABLET PO SCH (08:43)
[2020-11-19] MEDS: TAMSULOSIN HCL 0.4MG SR CAPSULE PO SCH (08:43)
[2020-11-19] MEDS: ASPIRIN 325MG EC TABLET PO SCH (08:43)
[2020-11-19] MEDS: DOCUSATE SODIUM 100MG CAPSULE PO SCH ×2 (08:43→17:13)
[2020-11-19] MEDS: CLOPIDOGREL 75MG TABLET PO SCH (08:43)
[2020-11-19] MEDS: METFORMIN HCL 500MG TABLET PO SCH ×2 (08:43→17:13)
[2020-11-19] MEDS: POLYETHYLENE GLYCOL 3350 (17GM) 1 DOSE PACK PO SCH (08:44)
[2020-11-19] MEDS: ASCORBIC ACID 500 MG TABLET PO SCH (08:44)
[2020-11-19] MEDS: CITALOPRAM HYDROBROMIDE 10MG TABLET PO SCH (08:44)
[2020-11-19] MEDS: AMLODIPINE 10MG TABLET PO SCH (08:44)
[2020-11-19] MEDS: POLYVINYL ALCOHOL OPHTH DROPS 15ML BOTHEYE SCH ×3 (08:45→17:13)
[2020-11-19] MEDS: LIDOCAINE 5% PATCH TOP SCH (18:38)
[2020-11-19 20:00] VITALS: BP 145/67
[2020-11-19] MEDS: TRAZODONE HCL 50MG TABLET PO SCH (21:41)
[2020-11-19] MEDS: ATORVASTATIN CALCIUM 40MG TABLET PO SCH (21:41)
[2020-11-19] MEDS: INSULIN GLARGINE UD 100 UNITS/ML SYR SUBCUT SCH (21:47)
[2020-11-20] MEDS: MICONAZOLE NITRATE TOP SCH (05:28)
[2020-11-20] MEDS: BLOOD SUGAR DIAGNOSTIC STRIP TEST SCH ×3 (05:29→17:27)
[2020-11-20] MEDS: INSULIN LISPRO (LOW DOSE) 100 UNITS/ML SUBCUT SCH ×3 (05:29→17:00)
[2020-11-20 07:00] VITALS: BP 128/64
[2020-11-20] MEDS: ASPIRIN 325MG EC TABLET PO SCH (08:49)
[2020-11-20] MEDS: CLOPIDOGREL 75MG TABLET PO SCH (08:49)
[2020-11-20] MEDS: ASCORBIC ACID 500 MG TABLET PO SCH (08:49)
[2020-11-20] MEDS: POLYVINYL ALCOHOL OPHTH DROPS 15ML BOTHEYE SCH ×3 (08:49→17:25)
[2020-11-20] MEDS: METFORMIN HCL 500MG TABLET PO SCH ×2 (08:50→17:25)
[2020-11-20] MEDS: CITALOPRAM HYDROBROMIDE 10MG TABLET PO SCH (08:50)
[2020-11-20] MEDS: DOCUSATE SODIUM 100MG CAPSULE PO SCH ×2 (08:50→17:00)
[2020-11-20] MEDS: TAMSULOSIN HCL 0.4MG SR CAPSULE PO SCH (08:50)
[2020-11-20] MEDS: FERROUS SULFATE 325MG TABLET PO SCH (08:50)
[2020-11-20] MEDS: LINAGLIPTIN 5MG TABLET PO SCH (08:50)
[2020-11-20] MEDS: POLYETHYLENE GLYCOL 3350 (17GM) 1 DOSE PACK PO SCH (08:51)
[2020-11-20] MEDS: AMLODIPINE 10MG TABLET PO SCH (08:51)
[2020-11-20] MEDS: LIDOCAINE 5% PATCH TOP SCH (18:44)
[2020-11-20 20:00] VITALS: BP 129/71
[2020-11-20] MEDS: ATORVASTATIN CALCIUM 40MG TABLET PO SCH (20:41)
[2020-11-20] MEDS: TRAZODONE HCL 50MG TABLET PO SCH (20:41)
[2020-11-20] MEDS: INSULIN GLARGINE UD 100 UNITS/ML SYR SUBCUT SCH (22:35)
[2020-11-21] MEDS: BLOOD SUGAR DIAGNOSTIC STRIP TEST SCH ×3 (07:00→17:00)
[2020-11-21 07:32] VITALS: BP 110/53
[2020-11-21] MEDS: POLYETHYLENE GLYCOL 3350 (17GM) 1 DOSE PACK PO SCH (09:00)
[2020-11-21] MEDS: TAMSULOSIN HCL 0.4MG SR CAPSULE PO SCH (09:00)
[2020-11-21] MEDS: AMLODIPINE 10MG TABLET PO SCH (09:00)
[2020-11-21] MEDS: POLYVINYL ALCOHOL OPHTH DROPS 15ML BOTHEYE SCH ×3 (09:00→17:00)
[2020-11-21] MEDS: ASPIRIN 325MG EC TABLET PO SCH (10:11)
[2020-11-21] MEDS: ASCORBIC ACID 500 MG TABLET PO SCH (10:11)
[2020-11-21] MEDS: DOCUSATE SODIUM 100MG CAPSULE PO SCH ×2 (10:11→17:00)
[2020-11-21] MEDS: LINAGLIPTIN 5MG TABLET PO SCH (10:11)
[2020-11-21] MEDS: FERROUS SULFATE 325MG TABLET PO SCH (10:12)
[2020-11-21] MEDS: METFORMIN HCL 500MG TABLET PO SCH ×2 (10:12→16:33)
[2020-11-21] MEDS: CLOPIDOGREL 75MG TABLET PO SCH (10:12)
[2020-11-21] MEDS: CITALOPRAM HYDROBROMIDE 10MG TABLET PO SCH (10:13)
[2020-11-21] MEDS: INSULIN LISPRO (LOW DOSE) 100 UNITS/ML SUBCUT SCH ×3 (12:50→17:00)
[2020-11-21] MEDS: LIDOCAINE 5% PATCH TOP SCH (17:32)
[2020-11-21 20:00] VITALS: BP 122/76
[2020-11-21] MEDS: TRAZODONE HCL 50MG TABLET PO SCH (21:19)
[2020-11-21] MEDS: ATORVASTATIN CALCIUM 40MG TABLET PO SCH (21:19)
[2020-11-21] MEDS: INSULIN GLARGINE UD 100 UNITS/ML SYR SUBCUT SCH (21:30)
[2020-11-22] MEDS: INSULIN LISPRO (LOW DOSE) 100 UNITS/ML SUBCUT SCH ×4 (06:00→22:00)
[2020-11-22] MEDS: BLOOD SUGAR DIAGNOSTIC STRIP TEST SCH ×4 (06:00→21:00)
[2020-11-22 07:54] VITALS: BP 122/61
[2020-11-22] MEDS: POLYETHYLENE GLYCOL 3350 (17GM) 1 DOSE PACK PO SCH (09:00)
[2020-11-22] MEDS: POLYVINYL ALCOHOL OPHTH DROPS 15ML BOTHEYE SCH ×3 (09:00→17:00)
[2020-11-22] MEDS: METFORMIN HCL 500MG TABLET PO SCH ×2 (09:28→16:30)
[2020-11-22] MEDS: ASPIRIN 325MG EC TABLET PO SCH (09:29)
[2020-11-22] MEDS: LINAGLIPTIN 5MG TABLET PO SCH (09:29)
[2020-11-22] MEDS: TAMSULOSIN HCL 0.4MG SR CAPSULE PO SCH (09:29)
[2020-11-22] MEDS: ASCORBIC ACID 500 MG TABLET PO SCH (09:29)
[2020-11-22] MEDS: FERROUS SULFATE 325MG TABLET PO SCH (09:29)
[2020-11-22] MEDS: CLOPIDOGREL 75MG TABLET PO SCH (09:29)
[2020-11-22] MEDS: CITALOPRAM HYDROBROMIDE 10MG TABLET PO SCH (09:29)
[2020-11-22] MEDS: DOCUSATE SODIUM 100MG CAPSULE PO SCH ×2 (09:29→17:00)
[2020-11-22] MEDS: AMLODIPINE 10MG TABLET PO SCH (09:29)
[2020-11-22 17:09] LABS: BASOPHILS % 0.8 % (0.0-2.0); EOSINOPHILS % 1.1 % (0.0-5.0); HEMATOCRIT. 44.9 % (42.0-52.0); LYMPHOCYTES % 22.4 % (20.0-50.0); MEAN CORPUSCULAR VOLUME 86.8 fL (80.0-94.0); MEAN PLATELET VOLUME 8.7 fl (7.4-10.4); MONOCYTES % 10.5 % (2.0-8.0); NEUTROPHILS % 65.2 % (40.0-76.0); PLATELET 234 x1000/uL (130-400); RED BLOOD CELL COUNT 5.17 mill/uL (4.7-6.1); RED CELL DISTRIBUTION WIDTH 14.4 % (11.6-14.6)
[2020-11-22] MEDS: LIDOCAINE 5% PATCH TOP SCH (17:13)
[2020-11-22 17:19] LABS: CHLORIDE 112 mEq/L (98-107)
[2020-11-22 20:00] VITALS: BP 137/59
[2020-11-22] MEDS: ATORVASTATIN CALCIUM 40MG TABLET PO SCH (21:17)
[2020-11-22] MEDS: TRAZODONE HCL 50MG TABLET PO SCH (21:17)
[2020-11-22] MEDS: INSULIN GLARGINE UD 100 UNITS/ML SYR SUBCUT SCH (22:00)
[2020-11-23 08:13] VITALS: BP 106/60
[2020-11-23] MEDS: AMLODIPINE 10MG TABLET PO SCH (09:00)
[2020-11-23] MEDS: POLYETHYLENE GLYCOL 3350 (17GM) 1 DOSE PACK PO SCH (09:00)
[2020-11-23] MEDS: DOCUSATE SODIUM 100MG CAPSULE PO SCH ×2 (09:00→17:00)
[2020-11-23] MEDS: POLYVINYL ALCOHOL OPHTH DROPS 15ML BOTHEYE SCH ×3 (09:00→17:00)
[2020-11-23] MEDS: ASPIRIN 325MG EC TABLET PO SCH (09:24)
[2020-11-23] MEDS: LINAGLIPTIN 5MG TABLET PO SCH (09:25)
[2020-11-23] MEDS: ASCORBIC ACID 500 MG TABLET PO SCH (09:25)
[2020-11-23] MEDS: TAMSULOSIN HCL 0.4MG SR CAPSULE PO SCH (09:25)
[2020-11-23] MEDS: FERROUS SULFATE 325MG TABLET PO SCH (09:25)
[2020-11-23] MEDS: CITALOPRAM HYDROBROMIDE 10MG TABLET PO SCH (09:25)
[2020-11-23] MEDS: METFORMIN HCL 500MG TABLET PO SCH ×2 (09:25→17:07)
[2020-11-23] MEDS: CLOPIDOGREL 75MG TABLET PO SCH (09:25)
[2020-11-23] MEDS: ERGOCALCIFEROL 50000UNITS CAPSULE PO SCH (09:33)
[2020-11-23] MEDS: INSULIN LISPRO (LOW DOSE) 100 UNITS/ML SUBCUT SCH ×2 (12:37→17:00)
[2020-11-23] MEDS: BLOOD SUGAR DIAGNOSTIC STRIP TEST SCH ×3 (13:00→21:00)
[2020-11-23] MEDS: LIDOCAINE 5% PATCH TOP SCH (18:00)
[2020-11-23 20:00] VITALS: BP 133/64
[2020-11-23] MEDS: ATORVASTATIN CALCIUM 40MG TABLET PO SCH (21:18)
[2020-11-23] MEDS: TRAZODONE HCL 50MG TABLET PO SCH (21:18)
[2020-11-23] MEDS: INSULIN GLARGINE UD 100 UNITS/ML SYR SUBCUT SCH (21:20)
[2020-11-23] MEDS: ACETAMINOPHEN 325MG TABLET PO PRN (22:56)
[2020-11-24] MEDS ORDERED: LIDOCAINE 5% PATCH TOP ONE (01:30)
[2020-11-24] MEDS ORDERED: LIDOCAINE 5% PATCH TOP NR (02:15)
[2020-11-24] MEDS: BLOOD SUGAR DIAGNOSTIC STRIP TEST SCH ×3 (06:22→16:20)
[2020-11-24] MEDS: INSULIN LISPRO (LOW DOSE) 100 UNITS/ML SUBCUT SCH ×3 (06:30→16:20)
[2020-11-24 07:51] VITALS: BP 114/53
[2020-11-24] MEDS: FERROUS SULFATE 325MG TABLET PO SCH (08:27)
[2020-11-24] MEDS: ASPIRIN 325MG EC TABLET PO SCH (08:27)
[2020-11-24] MEDS: LINAGLIPTIN 5MG TABLET PO SCH (08:28)
[2020-11-24] MEDS: AMLODIPINE 10MG TABLET PO SCH (08:28)
[2020-11-24] MEDS: CITALOPRAM HYDROBROMIDE 10MG TABLET PO SCH (08:28)
[2020-11-24] MEDS: METFORMIN HCL 500MG TABLET PO SCH ×2 (08:28→16:19)
[2020-11-24] MEDS: TAMSULOSIN HCL 0.4MG SR CAPSULE PO SCH (08:28)
[2020-11-24] MEDS: ASCORBIC ACID 500 MG TABLET PO SCH (08:28)
[2020-11-24] MEDS: DOCUSATE SODIUM 100MG CAPSULE PO SCH ×2 (08:28→16:19)
[2020-11-24] MEDS: CLOPIDOGREL 75MG TABLET PO SCH (08:28)
[2020-11-24] MEDS: POLYETHYLENE GLYCOL 3350 (17GM) 1 DOSE PACK PO SCH (08:29)
[2020-11-24] MEDS: ACETAMINOPHEN 325MG TABLET PO PRN ×2 (08:29→12:47)
[2020-11-24] MEDS: POLYVINYL ALCOHOL OPHTH DROPS 15ML BOTHEYE SCH ×3 (08:33→16:19)
[2020-11-24] MEDS: LIDOCAINE 5% PATCH TOP SCH (17:01)
[2020-11-24 20:00] VITALS: BP 132/65
[2020-11-24] MEDS: TRAZODONE HCL 50MG TABLET PO SCH (21:34)
[2020-11-24] MEDS: ATORVASTATIN CALCIUM 40MG TABLET PO SCH (21:34)
[2020-11-24] MEDS: INSULIN GLARGINE UD 100 UNITS/ML SYR SUBCUT SCH (21:38)
[2020-11-25] MEDS: ACETAMINOPHEN 325MG TABLET PO PRN ×2 (06:29→15:56)
[2020-11-25] MEDS: INSULIN LISPRO (LOW DOSE) 100 UNITS/ML SUBCUT SCH ×3 (06:31→17:00)
[2020-11-25] MEDS: BLOOD SUGAR DIAGNOSTIC STRIP TEST SCH ×3 (06:31→16:12)
[2020-11-25 07:51] VITALS: BP 133/58
[2020-11-25] MEDS: POLYETHYLENE GLYCOL 3350 (17GM) 1 DOSE PACK PO SCH (09:00)
[2020-11-25] MEDS: METFORMIN HCL 500MG TABLET PO SCH ×2 (09:18→16:11)
[2020-11-25] MEDS: LINAGLIPTIN 5MG TABLET PO SCH (09:18)
[2020-11-25] MEDS: POLYVINYL ALCOHOL OPHTH DROPS 15ML BOTHEYE SCH ×3 (09:18→16:12)
[2020-11-25] MEDS: ASCORBIC ACID 500 MG TABLET PO SCH (09:18)
[2020-11-25] MEDS: FERROUS SULFATE 325MG TABLET PO SCH (09:18)
[2020-11-25] MEDS: ASPIRIN 325MG EC TABLET PO SCH (09:18)
[2020-11-25] MEDS: CITALOPRAM HYDROBROMIDE 10MG TABLET PO SCH (09:18)
[2020-11-25] MEDS: DOCUSATE SODIUM 100MG CAPSULE PO SCH ×2 (09:18→16:11)
[2020-11-25] MEDS: AMLODIPINE 10MG TABLET PO SCH (09:18)
[2020-11-25] MEDS: TAMSULOSIN HCL 0.4MG SR CAPSULE PO SCH (09:18)
[2020-11-25] MEDS: CLOPIDOGREL 75MG TABLET PO SCH (09:18)
[2020-11-25] MEDS: LIDOCAINE 5% PATCH TOP SCH (17:31)
[2020-11-25 20:00] VITALS: BP 118/55
[2020-11-25] MEDS: TRAZODONE HCL 50MG TABLET PO SCH (21:39)
[2020-11-25] MEDS: ATORVASTATIN CALCIUM 40MG TABLET PO SCH (21:39)
[2020-11-25] MEDS: INSULIN GLARGINE UD 100 UNITS/ML SYR SUBCUT SCH (21:45)
[2020-11-26] MEDS: ACETAMINOPHEN 325MG TABLET PO PRN ×2 (04:47→12:53)
[2020-11-26] MEDS: INSULIN LISPRO (LOW DOSE) 100 UNITS/ML SUBCUT SCH ×3 (05:48→17:00)
[2020-11-26] MEDS: BLOOD SUGAR DIAGNOSTIC STRIP TEST SCH ×3 (05:48→17:00)
[2020-11-26 08:30] VITALS: BP 118/76
[2020-11-26] MEDS: POLYETHYLENE GLYCOL 3350 (17GM) 1 DOSE PACK PO SCH (09:00)
[2020-11-26] MEDS: CLOPIDOGREL 75MG TABLET PO SCH (09:42)
[2020-11-26] MEDS: ASCORBIC ACID 500 MG TABLET PO SCH (09:42)
[2020-11-26] MEDS: BISACODYL 5MG TABLET PO PRN (09:43)
[2020-11-26] MEDS: FERROUS SULFATE 325MG TABLET PO SCH (09:43)
[2020-11-26] MEDS: DOCUSATE SODIUM 100MG CAPSULE PO SCH ×2 (09:43→17:50)
[2020-11-26] MEDS: AMLODIPINE 10MG TABLET PO SCH (09:43)
[2020-11-26] MEDS: CITALOPRAM HYDROBROMIDE 10MG TABLET PO SCH (09:43)
[2020-11-26] MEDS: ASPIRIN 325MG EC TABLET PO SCH (09:43)
[2020-11-26] MEDS: TAMSULOSIN HCL 0.4MG SR CAPSULE PO SCH (09:50)
[2020-11-26] MEDS: METFORMIN HCL 500MG TABLET PO SCH ×2 (09:50→17:50)
[2020-11-26] MEDS: LINAGLIPTIN 5MG TABLET PO SCH (09:50)
[2020-11-26] MEDS: LIDOCAINE 5% PATCH TOP SCH (09:57)
[2020-11-26] MEDS: POLYVINYL ALCOHOL OPHTH DROPS 15ML BOTHEYE SCH ×2 (13:00→17:50)
[2020-11-26] MEDS ORDERED: GLUCAGON,HUMAN RECOMBINANT 1MG/VIAL IM PRN (19:45)
[2020-11-26 20:00] VITALS: BP 113/68
[2020-11-26] MEDS: ATORVASTATIN CALCIUM 40MG TABLET PO SCH (20:51)
[2020-11-26] MEDS: TRAZODONE HCL 50MG TABLET PO SCH (20:51)
[2020-11-26] MEDS: INSULIN GLARGINE UD 100 UNITS/ML SYR SUBCUT SCH (20:56)
[2020-11-27] MEDS ORDERED: BISACODYL 5MG TABLET PO PRN ×2 (01:30→08:00)
[2020-11-27] MEDS ORDERED: LACTULOSE 20G/30ML UDC PO PRN ×2 (01:30→08:00)
[2020-11-27] MEDS ORDERED: NA PHOS,M-B/NA PHOS,DI-BA ENEMA 118ML PR PRN (01:30)
[2020-11-27] MEDS ORDERED: BISACODYL 10MG SUPP PR PRN (01:30)
[2020-11-27] MEDS: ACETAMINOPHEN 325MG TABLET PO PRN ×2 (06:27→11:58)
[2020-11-27] MEDS: INSULIN LISPRO (LOW DOSE) 100 UNITS/ML SUBCUT SCH ×3 (06:31→17:00)
[2020-11-27] MEDS: BLOOD SUGAR DIAGNOSTIC STRIP TEST SCH ×3 (07:30→17:00)
[2020-11-27 08:00] VITALS: BP 130/55
[2020-11-27] MEDS: METFORMIN HCL 500MG TABLET PO SCH ×2 (08:34→17:00)
[2020-11-27] MEDS: DOCUSATE SODIUM 100MG CAPSULE PO SCH ×2 (08:34→17:00)
[2020-11-27] MEDS: TAMSULOSIN HCL 0.4MG SR CAPSULE PO SCH (08:34)
[2020-11-27] MEDS: FERROUS SULFATE 325MG TABLET PO SCH (08:34)
[2020-11-27] MEDS: LINAGLIPTIN 5MG TABLET PO SCH (08:34)
[2020-11-27] MEDS: AMLODIPINE 10MG TABLET PO SCH (08:35)
[2020-11-27] MEDS: CITALOPRAM HYDROBROMIDE 10MG TABLET PO SCH (08:35)
[2020-11-27] MEDS: ASCORBIC ACID 500 MG TABLET PO SCH (08:35)
[2020-11-27] MEDS: ASPIRIN 325MG EC TABLET PO SCH (08:35)
[2020-11-27] MEDS: CLOPIDOGREL 75MG TABLET PO SCH (08:35)
[2020-11-27] MEDS ORDERED: DOCUSATE SODIUM 100MG CAPSULE PO SCH (09:00)
[2020-11-27] MEDS ORDERED: ASCORBIC ACID 500MG/5ML 120ML PO SCH (09:00)
[2020-11-27] MEDS: POLYETHYLENE GLYCOL 3350 (17GM) 1 DOSE PACK PO SCH (09:00)
[2020-11-27] MEDS: LIDOCAINE 5% PATCH TOP SCH (18:00)
[2020-11-27 20:00] VITALS: BP 137/70
[2020-11-27] MEDS ORDERED: TRAZODONE HCL 50MG TABLET PO SCH (21:00)
[2020-11-27] MEDS: ATORVASTATIN CALCIUM 40MG TABLET PO SCH (21:13)
[2020-11-27] MEDS: TRAZODONE HCL 50MG TABLET PO SCH (21:13)
[2020-11-27] MEDS: INSULIN GLARGINE UD 100 UNITS/ML SYR SUBCUT SCH (21:20)
[2020-11-28] MEDS: INSULIN LISPRO (LOW DOSE) 100 UNITS/ML SUBCUT SCH ×3 (06:38→16:49)
[2020-11-28 07:44] LABS: HEMATOCRIT. 43.5 % (42.0-52.0); HEMOGLOBIN. 14.3 g/dL (14.0-18.0); MEAN CORPUSCULAR HEMOGLOBIN 28.6 pg (28.0-32.0); MEAN CORPUSCULAR VOLUME 87.3 fL (80.0-94.0); MEAN PLATELET VOLUME 9.2 fl (7.4-10.4); PLATELET 249 x1000/uL (130-400); RED BLOOD CELL COUNT 4.99 mill/uL (4.7-6.1); RED CELL DISTRIBUTION WIDTH 14.7 % (11.6-14.6)
[2020-11-28 08:00] VITALS: BP 118/70
[2020-11-28] MEDS: POLYVINYL ALCOHOL OPHTH DROPS 15ML BOTHEYE SCH ×3 (08:43→16:49)
[2020-11-28] MEDS: METFORMIN HCL 500MG TABLET PO SCH (08:43)
[2020-11-28] MEDS: ASPIRIN 325MG EC TABLET PO SCH (08:43)
[2020-11-28] MEDS: AMLODIPINE 10MG TABLET PO SCH (08:43)
[2020-11-28] MEDS: DOCUSATE SODIUM 100MG CAPSULE PO SCH ×2 (08:43→16:48)
[2020-11-28] MEDS: FERROUS SULFATE 325MG TABLET PO SCH (08:44)
[2020-11-28] MEDS: CITALOPRAM HYDROBROMIDE 10MG TABLET PO SCH (08:44)
[2020-11-28] MEDS: TAMSULOSIN HCL 0.4MG SR CAPSULE PO SCH (08:44)
[2020-11-28] MEDS: CLOPIDOGREL 75MG TABLET PO SCH (08:44)
[2020-11-28] MEDS: LINAGLIPTIN 5MG TABLET PO SCH (08:44)
[2020-11-28] MEDS: ASCORBIC ACID 500 MG TABLET PO SCH (08:44)
[2020-11-28] MEDS: ACETAMINOPHEN 325MG TABLET PO PRN ×2 (08:44→16:51)
[2020-11-28] MEDS ORDERED: FERROUS SULFATE 325MG TABLET PO SCH (09:00)
[2020-11-28] MEDS: POLYETHYLENE GLYCOL 3350 (17GM) 1 DOSE PACK PO SCH (09:00)
[2020-11-28] MEDS: LIDOCAINE 5% PATCH TOP SCH (11:59)
[2020-11-28] MEDS: BLOOD SUGAR DIAGNOSTIC STRIP TEST SCH ×2 (12:00→16:45)
[2020-11-28 17:49] LABS: PLATELET ESTIMATE NORMAL
[2020-11-28 20:00] VITALS: BP 129/67
[2020-11-28] MEDS: ATORVASTATIN CALCIUM 40MG TABLET PO SCH (22:17)
[2020-11-28] MEDS: TRAZODONE HCL 50MG TABLET PO SCH (22:17)
[2020-11-28] MEDS: INSULIN GLARGINE UD 100 UNITS/ML SYR SUBCUT SCH (22:40)
[2020-11-29] MEDS: BLOOD SUGAR DIAGNOSTIC STRIP TEST SCH ×3 (05:52→16:03)
[2020-11-29] MEDS: ACETAMINOPHEN 325MG TABLET PO PRN ×3 (05:53→21:33)
[2020-11-29] MEDS: INSULIN LISPRO (LOW DOSE) 100 UNITS/ML SUBCUT SCH ×3 (05:53→16:08)
[2020-11-29 06:52] LABS: BASOPHILS % 0.5 % (0.0-2.0); EOSINOPHILS % 0.8 % (0.0-5.0); HEMATOCRIT. 44.8 % (42.0-52.0); HEMOGLOBIN. 14.8 g/dL (14.0-18.0); LYMPHOCYTES % 16.2 % (20.0-50.0); MEAN CORPUSCULAR HEMOGLOBIN 28.9 pg (28.0-32.0); MEAN CORPUSCULAR VOLUME 87.3 fL (80.0-94.0); MONOCYTES % 13.7 % (2.0-8.0); NEUTROPHILS % 68.8 % (40.0-76.0); PLATELET 255 x1000/uL (130-400); RED BLOOD CELL COUNT 5.13 mill/uL (4.7-6.1); RED CELL DISTRIBUTION WIDTH 14.6 % (11.6-14.6)
[2020-11-29 07:01] LABS: CHLORIDE 109 mEq/L (98-107)
[2020-11-29 08:00] VITALS: BP 119/57
[2020-11-29] MEDS: CITALOPRAM HYDROBROMIDE 10MG TABLET PO SCH (08:12)
[2020-11-29] MEDS: FERROUS SULFATE 325MG TABLET PO SCH (08:12)
[2020-11-29] MEDS: TAMSULOSIN HCL 0.4MG SR CAPSULE PO SCH (08:12)
[2020-11-29] MEDS: AMLODIPINE 10MG TABLET PO SCH (08:12)
[2020-11-29] MEDS: DOCUSATE SODIUM 100MG CAPSULE PO SCH ×2 (08:12→16:03)
[2020-11-29] MEDS: POLYVINYL ALCOHOL OPHTH DROPS 15ML BOTHEYE SCH ×3 (08:13→16:03)
[2020-11-29] MEDS: CLOPIDOGREL 75MG TABLET PO SCH (08:13)
[2020-11-29] MEDS: LINAGLIPTIN 5MG TABLET PO SCH (08:13)
[2020-11-29] MEDS: ASCORBIC ACID 500 MG TABLET PO SCH (08:13)
[2020-11-29] MEDS: ASPIRIN 325MG EC TABLET PO SCH (08:13)
[2020-11-29] MEDS: LIDOCAINE 5% PATCH TOP SCH (08:14)
[2020-11-29] MEDS: POLYETHYLENE GLYCOL 3350 (17GM) 1 DOSE PACK PO SCH (08:18)
[2020-11-29 20:00] VITALS: BP 139/81
[2020-11-29] MEDS: TRAZODONE HCL 50MG TABLET PO SCH (21:33)
[2020-11-29] MEDS: ATORVASTATIN CALCIUM 40MG TABLET PO SCH (21:33)
[2020-11-29] MEDS: INSULIN GLARGINE UD 100 UNITS/ML SYR SUBCUT SCH (22:13)
[2020-11-30] MEDS: BLOOD SUGAR DIAGNOSTIC STRIP TEST SCH (05:35)
[2020-11-30] MEDS: INSULIN LISPRO (LOW DOSE) 100 UNITS/ML SUBCUT SCH (06:10)
[2020-11-30] MEDS: ACETAMINOPHEN 325MG TABLET PO PRN (06:12)
[2020-11-30 07:00] VITALS: BP 127/72
[2020-11-30 07:06] VITALS: BP 126/66
== END 2020-11-30 07:40 | disposition still patient (30) | DRG 45 ==
PROVIDERS: ADMIT Physical Medicine & Rehabilitation Spinal Cord Injury Medicine; ATTEND Family Medicine Adult Medicine
DX: I63.9 Cerebral infarction, unspecified (principal); E44.1 Mild protein-calorie malnutrition; N17.9 Acute kidney failure, unspecified; E11.40 Type 2 diabetes mellitus with diabetic neuropathy, unspecified; E11.51 Type 2 diabetes mellitus with diabetic peripheral angiopathy without gangrene; E11.36 Type 2 diabetes mellitus with diabetic cataract; E87.1 Hypo-osmolality and hyponatremia; H53.462 Homonymous bilateral field defects, left side; R47.01 Aphasia; G81.94 Hemiplegia, unspecified affecting left nondominant side; D50.9 Iron deficiency anemia, unspecified; E11.65 Type 2 diabetes mellitus with hyperglycemia; E66.9 Obesity, unspecified; E78.5 Hyperlipidemia, unspecified; E86.0 Dehydration; E87.5 Hyperkalemia; E87.6 Hypokalemia; F32.9 Major depressive disorder, single episode, unspecified; G47.00 Insomnia, unspecified; H25.10 Age-related nuclear cataract, unspecified eye; I10 Essential (primary) hypertension; K52.9 Noninfective gastroenteritis and colitis, unspecified; K59.00 Constipation, unspecified; N13.9 Obstructive and reflux uropathy, unspecified; R13.10 Dysphagia, unspecified; R29.810 Facial weakness; Y90.0 Blood alcohol level of less than 20 mg/100 ml; Z79.899 Other long term (current) drug therapy; Z80.3 Family history of malignant neoplasm of breast; Z82.3 Family history of stroke; Z82.49 Family history of ischemic heart disease and other diseases of the circulatory system; Z83.3 Family history of diabetes mellitus; Z86.73 Personal history of transient ischemic attack (TIA), and cerebral infarction without residual deficits; E55.9 Vitamin D deficiency, unspecified
CPT/HCPCS: 36415; 70551; 73110; 76770; 80048; 80053; 80061; 81003; 82306; 82550; 82570; 82607; 82728; 82746; 82962; 83036; 83540; 83550; 83735; 83930; 84100; 84134; 84153; 84156; 84443; 85025; 85027; 87426; 92523; 92610; 93880; 93970; 93971; 97110; 97112; 97116; 97162; 97166; 97530; 97535; 97760; A4565; J1815; A4315; G0103